=== PATIENT | female | born 1930 | race Caucasian/White ===

== ENCOUNTER 2017-02-24 02:51 | Inpatient (IN) ==
--- NOTE | 2017-02-10 12:56 | EKG Report ---
Test Performed on : 02/10/2017 12:10:49 PM Test Reason : PAT Blood Pressure : / mmHG Vent. Rate : 071 BPM Atrial Rate : 071 BPM P-R Int : 164 ms QRS Dur : 084 ms QT Int : 410 ms P-R-T Axes : 036 067 060 degrees QTc Int : 445 ms Normal sinus rhythm. Normal ECG When compared with ECG of 10-MAY-2015 14:40, No significant change was found Confirmed by Dago Martinez MD ([id number]) on 02/11/2017 7:03:16 AM
[2017-02-10 13:08] LABS: MANUAL DIFF NEEDED? NO; URINE MICRO REVIEW NEEDED? NO; URINE SOURCE CLEAN CATCH
[2017-02-10 13:21] LABS: BASO% 0.7 % (0.0-0.8); EOS% 2.8 % (0.0-10.0); HEMATOCRIT 43.4 % (37.0-47.0); HEMOGLOBIN 14.6 g/dL (12.0-16.0); LYMPH# 1.96 X1000 (1.2-3.4); MCH 32.4 PG (27-31); MCHC 33.6 g/dL (33-37); MCV 96.2 FL (81-99); MONO# 0.62 X1000 (0.11-0.59); MONO% 8.5 % (1.7-9.3); MPV 10.5 FL (7.4-10.4); PLT 284 X1000 (130-400); RBC 4.51 XMIL (4.2-5.4)
[2017-02-10 13:23] LABS: BILIRUBIN URINE NEGATIVE (NEGATIVE); BLOOD URINE NEGATIVE (NEGATIVE); COLOR YELLOW; GLUCOSE URINE NEGATIVE (NEGATIVE); LEUKOCYTES URINE SMALL (NEGATIVE); NITRITE URINE NEGATIVE (NEGATIVE); PH URINE 6.5; PROTEIN URINE NEGATIVE (NEGATIVE); SP GRAVITY URINE 1.008; TURBIDITY URINE CLEAR (CLEAR); UROBILINOGEN URINE NORMAL (NORMAL)
[2017-02-10 13:41] LABS: INR 1.01; PROTIME 10.6 Seconds (9.2-11.7)
[2017-02-10 13:42] LABS: UR EPITHELIAL CELLS <10 /HPF (<10); URINE BACTERIA NEGATIVE /HPF; URINE RBC <10 /HPF (<10); URINE WBC <10 /HPF (<10)
[2017-02-10 14:00] LABS: AGAP 14; BUN 14 mg/dL (8-22); CALCIUM 9.6 mg/dL (8.8-10.2); CHLORIDE 103 mmol/L (98-107); COSMO 288; POTASSIUM 4.3 mmol/L (3.5-5.1); SODIUM 144 mmol/L (136-145); TCO2 27 mmol/L (25-35)
[2017-02-24] MEDS ORDERED: LEVSIN-SL SL PRN (06:55)
[2017-02-24] MEDS ORDERED: LR 1,000 ML ONE ×2 (06:55→11:59)
[2017-02-24] MEDS ORDERED: COLACE ONE (06:56)
[2017-02-24] MEDS ORDERED: REGLAN ONE (06:56)
[2017-02-24] MEDS ORDERED: PEPCID ONE (06:56)
[2017-02-24] MEDS ORDERED: KEFZOL 1 GM/D5W 1 GM/50 ML IVPB ONE (06:57)
[2017-02-24] MEDS ORDERED: LYRICA ONE (06:57)
[2017-02-24] MEDS ORDERED: CELEBREX ONE (06:57)
[2017-02-24] MEDS ORDERED: MARCAINE 0.25% PF/EPI 1:200,000 ONE (07:55)
[2017-02-24] MEDS ORDERED: EXPAREL 1.3% ONE (07:55)
[2017-02-24] MEDS ORDERED: CYKLOKAPRON 1,000 MG/NS 1,000 MG/100 ML IVPB ONE (07:55)
[2017-02-24] MEDS ORDERED: SODIUM CHLORIDE 0.9% ONE (07:55)
[2017-02-24] MEDS ORDERED: TORADOL ONE (07:55)
[2017-02-24] MEDS ORDERED: NEOSPORIN G.U. IRRIGANT ONE (07:55)
[2017-02-24 10:01] LABS: URINE MICRO REVIEW NEEDED? NO; URINE SOURCE CATH
[2017-02-24 10:09] LABS: BILIRUBIN URINE NEGATIVE (NEGATIVE); BLOOD URINE NEGATIVE (NEGATIVE); COLOR STRAW; GLUCOSE URINE NEGATIVE (NEGATIVE); LEUKOCYTES URINE NEGATIVE (NEGATIVE); NITRITE URINE NEGATIVE (NEGATIVE); PH URINE 6.5; PROTEIN URINE NEGATIVE (NEGATIVE); SP GRAVITY URINE 1.006; TURBIDITY URINE CLEAR (CLEAR); UR EPITHELIAL CELLS <10 /HPF (<10); URINE BACTERIA NEGATIVE /HPF; URINE RBC <10 /HPF (<10); URINE WBC <10 /HPF (<10); UROBILINOGEN URINE NORMAL (NORMAL)
[2017-02-24] MEDS ORDERED: NS 1,000 ML ONE (10:58)
[2017-02-24] MEDS ORDERED: FENTANYL ONE (11:17)
--- NOTE | 2017-02-24 11:56 | Diag Imaging Result Doc PS360 ---
EXAM: SHOULDER 1 VIEW RIGHT HISTORY: s/p R TSA TECHNIQUE: COMPARISON: None. FINDINGS: Recent orthopedic placement of the right shoulder. There is good positioning on this single view. No separation at the common clavicular joint. IMPRESSION: Recently replaced right shoulder. Electronically signed by Dawit Ley 02/24/2017 11:54 AM
[2017-02-24] MEDS ORDERED: NEOSTIGMINE ONE (11:58)
[2017-02-24] MEDS ORDERED: ROBINUL ONE (11:59)
[2017-02-24] MEDS ORDERED: OFIRMEV 1000 MG/ISOTONIC SOLN 1,000 MG/100 ML BOTTLE ONE (11:59)
[2017-02-24] MEDS ORDERED: AMIDATE ONE (11:59)
[2017-02-24] MEDS ORDERED: DECADRON ONE (11:59)
[2017-02-24] MEDS ORDERED: EPHEDRINE ONE (11:59)
[2017-02-24] MEDS ORDERED: ZEMURON ONE (11:59)
[2017-02-24] MEDS ORDERED: XYLOCAINE-MPF 2% ONE (11:59)
--- NOTE | 2017-02-24 12:26 | OPERATIVE NOTE ---
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 POSTOPERATIVE DIAGNOSIS: Painful right humeral cap arthroplasty with chronic rotator cuff tear. PROCEDURE: Revision arthroplasty to a reverse total shoulder with a DePuy Delta Xtend size 12 HODGE coated cementless stem with an HODGE coated eccentric epiphysis, a 42+ 6 humeral cup, a 42 eccentric Glenosphere and a standard Metaglene. SURGEON: Jim Falk MD. CHIEF LOCK TENDER OPERATOR: LUZMARIA Thacker. SECOND CHIEF LOCK TENDER OPERATOR: Danny Nielsen, Medical student. ANESTHESIA: General. INTRAVENOUS FLUIDS: 1000 mL lactated Ringer's. ESTIMATED BLOOD LOSS: 200 mL. COMPLICATIONS: None. INDICATIONS: The patient is a pleasant 86-year-old female who is status post humeral cap arthroplasty in 2005 in [place]. She states that she has had worsening pain and discomfort through the years, and recommendation to proceed with revision arthroplasty to reverse total shoulder arthroplasty was offered. The risks and benefits of surgery were explained, including the risks of anesthesia, , bleeding, infection, failure to relieve pain, postoperative stiffness, nerve injury, blood clots, and other imponderables. All questions were answered and the patient's family wished to proceed with surgery. DETAILS OF OPERATION: The patient was taken to the operating room and placed supine on the operating table. Once adequate anesthesia was obtained, the patient's right upper extremity was subsequently prepped and draped in usual sterile fashion. A standard deltopectoral incision was made through the previous surgical incision. Hemostasis was obtained using electrocautery. The deltopectoral interval was then developed. The patient had expected adhesions. After elevation of the deltoid, Smith retractors were placed. The conjoined tendon was also elevated and had some adhesions on it, as well. Subscapularis tendon was then identified and incised approximately 1 cm medial to its insertion. Then it was retracted medially. The few remaining fibers on the posterior superior aspect of the rotator cuff were released, along with the biceps tendon. After this had been performed, the head was then dislocated anteriorly. The humeral cap was elevated off the proximal humerus without difficulty. After this had been performed, intramedullary reaming was then conducted up to size 12. An intramedullary guide was then placed in position and proximal humeral cutting guide was pinned in position. The proximal humerus was then resected. A protective cap was then placed and attention then turned to the glenoid. The patient had significant posterior wear with some medialization of the glenoid. A guide pin was placed in position. Reaming was then conducted more eccentrically on the anterior aspect. After obtaining adequate contour, a central hole was then reamed. Copious irrigation was performed with antibiotic pulsatile lavage. The patient did have a small glenoid. The Metaglene was then impacted in position and had good fit. Two locking screws were placed, one inferiorly and one superiorly, and had good purchase of each screw. Had inadequate bone for a posterior screw. The wound was copiously irrigated once again. A 42 eccentric Glenosphere was then placed with the eccentricity placed inferiorly. It appeared to have good fixation of the Glenosphere. Attention was then turned to the proximal humerus, where the intramedullary guide was then placed in position and the proximal humerus was reamed. Intramedullary canal was then copiously irrigated with antibiotic pulsatile lavage. A size 12 HODGE coated stem with the HODGE coated modular epiphysis, which was assembled on the back table, was then impacted in position in 10 degrees of retroversion. Autologous impaction bone grafting was placed and appeared to have good fixation. Trial cup size then placed of +6, and had excellent stability and range of motion. Trial cup was then removed. Copious irrigation was then performed once again with antibiotic pulsatile lavage. A 42+ 6 humeral cup was then impacted on the stem. The shoulder was reduced, carried through range of motion, and had excellent stability on range of motion. Exparel was placed in deep soft tissue as well as subcutaneous tissue. Copious irrigation was then performed once again with antibiotic pulsatile lavage. Then 2-0 Vicryl was used to repair the subcutaneous tissue, followed by running 3-0 Prolene. Benzoin and Steri-Strips were applied. Adaptic, sterile 4x4's, ABD pad, and tape to the right shoulder, followed by a shoulder immobilizer. All counts were correct. Patient tolerated the procedure well and was transferred to the recovery room in stable condition. cc: MD MARYCHUY Vallejo
[2017-02-24] MEDS ORDERED: MORPHINE IV PRN (13:23)
[2017-02-24] MEDS ORDERED: OXY IR PO PRN (13:23)
[2017-02-24] MEDS ORDERED: MILK OF MAGNESIA PO PRN (13:24)
[2017-02-24] MEDS ORDERED: ZOFRAN PO PRN (13:24)
[2017-02-24] MEDS: NS 1,000 ML IV SCH ×2 (14:39→21:49)
[2017-02-24] MEDS: KEFZOL 1 GM/D5W 1 GM/50 ML IVPB IV SCH (16:36)
[2017-02-24] MEDS: TYLENOL PO SCH (16:36)
[2017-02-24] MEDS: PERIDEX MT SCH (21:49)
[2017-02-24] MEDS: COLACE PO SCH (21:49)
[2017-02-25] MEDS: KEFZOL 1 GM/D5W 1 GM/50 ML IVPB IV SCH (01:34)
[2017-02-25] MEDS: TYLENOL PO SCH ×4 (01:35→21:16)
[2017-02-25 05:35] LABS: HEMATOCRIT 32.5 % (37.0-47.0); HEMOGLOBIN 10.4 g/dL (12.0-16.0)
[2017-02-25] MEDS: NS 1,000 ML IV SCH (05:57)
[2017-02-25 06:06] LABS: CALCIUM 8.1 mg/dL (8.8-10.2)
--- NOTE | 2017-02-25 06:59 | PROGRESS NOTE ---
DATE: 02/25/2017 HISTORY: The patient is a pleasant, 86-year-old female who is 1 day status post revision arthroplasty to a right reverse total shoulder arthroplasty. She is currently resting comfortably and has no complaints. OBJECTIVE: On physical examination, the patient's dressing is intact. 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 Her hemoglobin is 10.4, hematocrit is 32.5. IMPRESSION: Postoperative day #1 status post right revision arthroplasty to a reverse total shoulder arthroplasty. PLAN: At this point, we will change her dressing. We will Hep-Lock her IV and discontinue her Mckeon. We will continue to mobilize with physical therapy. We will consult [facility] for inpatient rehabilitation. cc: Jim Falk MD
[2017-02-25] MEDS: PERIDEX MT SCH ×2 (09:34→21:16)
[2017-02-25] MEDS: PEPCID PO SCH (09:35)
[2017-02-25] MEDS: COLACE PO SCH ×2 (09:35→21:16)
--- NOTE | 2017-02-25 14:32 | Diag Imaging Result Doc PS360 ---
CHEST-PORTABLE - 02/25/2017 INDICATION: rehab TECHNIQUE: COMPARISON: 05/10/2015 FINDINGS: Heart size and pulmonary vascularity is grossly normal. There is slight blunting of the left lateral costophrenic angle which may suggest a trace pleural effusion. No infiltrates. IMPRESSION: No significant acute disease. Electronically signed by Norman Gonzalez 02/25/2017 2:30 PM
[2017-02-26] MEDS: TYLENOL PO SCH (01:45)
[2017-02-26 06:21] LABS: HEMOGLOBIN 11.2 g/dL (12.0-16.0)
[2017-02-26] MEDS ORDERED: TYLENOL PO PRN (06:23)
[2017-02-26] MEDS ORDERED: OXY IR PO PRN (06:25)
--- NOTE | 2017-02-26 06:40 | PROGRESS NOTE ---
DATE: 02/26/2017 SUBJECTIVE: The patient is a pleasant 86-year-old female who is 2 days status post revision arthroplasty to a reverse total shoulder arthroplasty. The patient is currently resting comfortably and has no complaints. PHYSICAL EXAMINATION: On physical exam, the patient's right extremity, her wound looks good. There are no signs or symptoms of infection. She has expected swelling and ecchymosis on the upper arm. 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 She is able to flex all of her fingers. LABORATORY DATA: Her hemoglobin is 11.2, hematocrit 35. IMPRESSION: Postoperative day number 1, status post revision arthroplasty to a reverse total shoulder arthroplasty. PLAN: At this point, we will continue with physical therapy. We will plan on discharging for inpatient rehabilitation tomorrow. cc: Jim Falk MD
--- NOTE | 2017-02-26 06:51 | DISCHARGE SUMMARY ---
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 BRIEF HISTORY: The patient is a pleasant 86-year-old female, who is status post humeral cap arthroplasty in 2005 at [place]. The patient has had worsening pain and discomfort through the years and given her continued discomfort, recommendation to proceed with revision to a reverse shoulder arthroplasty was offered. Risks and benefits were discussed and all questions were answered. The patient and family wished to proceed with surgery. HOSPITAL COURSE AND TREATMENT: The patient was admitted to the hospital and underwent revision arthroplasty to a reverse shoulder arthroplasty. Patient tolerated the procedure well and had no complications. The patient had an uneventful postoperative course. Her hemoglobin and hematocrit stabilized to 11.2 and 35.0. By postoperative day #2, she was afebrile tolerating a regular diet and was progressing with Physical Therapy. Her pain was well controlled with p.o. medications. It was felt that the patient would benefit from inpatient rehabilitation. The patient and family were agreeable to this. DISCHARGE MEDICATIONS: OxyIR 5 mg 1 p.o. q.4 hours p.r.n. pain. For remaining medications, please see medication list. DISCHARGE INSTRUCTIONS: 1. The patient will be discharged for inpatient rehabilitation. 2. Consult Physical Therapy for passive range of motion excise to the right shoulder with forward flexion and external rotation, as well as pendulum exercises and active and passive range of motion to the elbow, wrist and fingers. 3. Discontinue sutures in 10 days 4. Follow up in the office in 3 weeks. cc: Jim Falk MD
[2017-02-26] MEDS: PEPCID PO SCH (10:40)
[2017-02-26] MEDS: PERIDEX MT SCH ×2 (10:40→21:55)
[2017-02-26] MEDS: COLACE PO SCH ×2 (10:41→21:55)
[2017-02-27 06:01] LABS: HEMATOCRIT 35.5 % (37.0-47.0); HEMOGLOBIN 11.4 g/dL (12.0-16.0)
[2017-02-27] MEDS: PERIDEX MT SCH (08:29)
[2017-02-27] MEDS: PEPCID PO SCH (08:29)
[2017-02-27] MEDS: COLACE PO SCH (08:29)
[2017-02-27 11:26] VITALS: BP 151/74
== END 2017-02-27 11:51 ==
LOC: SURHOLD 02:51 → 4N 09:05
PROVIDERS: ADMIT Orthopaedic Surgery Adult Reconstructive Orthopaedic Surgery; ATTEND Orthopaedic Surgery Adult Reconstructive Orthopaedic Surgery